=== PATIENT | female | born 1945 | race Caucasian/White ===

== ENCOUNTER → 2017-03-04 | Outpatient (CLI) | payer MEDICARE, OTHER ==
[~2017-03-04] MED LIST: ALEVE220 M1 PO; ASPIRIN EC81 MG PO; CALCIUM + VITA1 EACH PO; CALCIUM 1,0001 EACH PO; COLACE100 MG PO; DILAUDID 2MG(HYD2 MG PO; FOSAMAX70 MG PO; LOPID600 M1 PO; MIRALAX17 GM PO; NORVASC5 MG PO; TYLENOL EXTRA500 MG PO; VALIUM5 MG PO; [UNRECOGNIZED DRUG - OTHER] SUB-Q
== END | disposition disaster alternative care site (69) ==
LOC: GBCOE 08:46
DX: Z12.31 Encounter for screening mammogram for malignant neoplasm of breast (principal); Z91.89 Other specified personal risk factors, not elsewhere classified
CPT/HCPCS: G0202